=== PATIENT | female | born 1985 | race Two or more races ===

== ENCOUNTER 2020-12-31 22:31 | Emergency (ER) | payer SELFPAY ==
[~2020-12-31] VITALS: Ht 170.2 cm; Wt 56.7 kg
[2021-01-01] MEDS ORDERED: HYDROcodone-ACET 10/325MG TAB PO ONE (01:00)
[2021-01-01] MEDS ORDERED: ONDANSETRON ODT 4 MG TAB PO ONE (01:00)
[2021-01-01 01:15] VITALS: BP 111/78
== END 2021-01-01 02:24 | disposition left against medical advice (07) ==
LOC: ER 22:31
DX: S42.031A Displaced fracture of lateral end of right clavicle, initial encounter for closed fracture (principal); S46.911A Strain of unspecified muscle, fascia and tendon at shoulder and upper arm level, right arm, initial encounter; S40.211A Abrasion of right shoulder, initial encounter; Z53.29 Procedure and treatment not carried out because of patient's decision for other reasons; W01.0XXA Fall on same level from slipping, tripping and stumbling without subsequent striking against object, initial encounter; Y93.89 Activity, other specified; Y99.8 Other external cause status; Y92.89 Other specified places as the place of occurrence of the external cause
CPT/HCPCS: 73000; 73030; 73070